=== PATIENT | female | born 1990 | race Caucasian/White ===

== ENCOUNTER 2016-06-15 20:35 | Emergency (ER) | payer OTHER ==
[~2016-06-15] VITALS: Ht 160 cm; Wt 60.0 kg
[~2016-06-15 20:35] MED LIST: NITR-87 PO; PREN-88 PO
[2016-06-15 21:25] VITALS: BP 127/79
[2016-06-15] MEDS ORDERED: KETOROLAC 60MG/2ML VIAL IM ONE (22:45)
[2016-06-15] MEDS ORDERED: ACETAMINOPHEN 325MG TABLET PO ONE (23:15)
== END 2016-06-15 23:50 | disposition home or self-care (01) ==
LOC: ER 20:36
DX: S62.633A Displaced fracture of distal phalanx of left middle finger, initial encounter for closed fracture (principal); J45.909 Unspecified asthma, uncomplicated; Z79.899 Other long term (current) drug therapy; Z88.8 Allergy status to other drugs, medicaments and biological substances; Y93.67 Activity, basketball; W21.05XA Struck by basketball, initial encounter; Y92.310 Basketball court as the place of occurrence of the external cause; Y99.8 Other external cause status
CPT/HCPCS: 29130; 73130; 99284

== ENCOUNTER 2016-08-28 11:05 | Emergency (ER) | payer OTHER ==
[~2016-08-28] VITALS: Ht 160 cm; Wt 59.0 kg
[2016-08-28] MEDS ORDERED: SODIUM CHLORIDE 0.9% 1,000 ML IV ONE (11:29)
[2016-08-28] MEDS ORDERED: FAMOTIDINE 20MG/2ML VIAL IV STA (11:29)
[2016-08-28] MEDS ORDERED: KETOROLAC 30MG/ML VIAL IV STA (11:29)
[2016-08-28] MEDS ORDERED: ONDANSETRON HCL 4MG/2ML VIAL IV STA (11:29)
[2016-08-28 12:06] LABS: BASOPHILS % 0.7 % (0.0-2.0); EOSINOPHILS % 0.1 % (0.0-5.0); HEMATOCRIT. 39.2 % (36.0-48.0); HEMOGLOBIN. 13.4 g/dL (12.0-16.0); LYMPHOCYTES % 19.1 % (20.0-50.0); MEAN CORPUSCULAR VOLUME 93.5 fL (81.0-99.0); MEAN PLATELET VOLUME 10.4 fl (7.4-10.4); MONOCYTES % 6.1 % (2.0-8.0); PLATELET 203 x1000/uL (130-400); RED CELL DISTRIBUTION WIDTH 13.1 % (11.6-14.6)
[2016-08-28 12:10] LABS: CHLORIDE 110 mEq/L (98-107)
[2016-08-28 12:13] LABS: INR 1.1; PROTHROMBIN TIME 11.4 sec
[2016-08-28 12:21] LABS: CARBON DIOXIDE 24 mEq/L (21-32)
[2016-08-28 13:23] VITALS: BP 119/78
== END 2016-08-28 13:30 | disposition home or self-care (01) ==
LOC: ER 11:50
DX: N92.0 Excessive and frequent menstruation with regular cycle (principal); R10.9 Unspecified abdominal pain; R11.2 Nausea with vomiting, unspecified; R19.7 Diarrhea, unspecified; R03.0 Elevated blood-pressure reading, without diagnosis of hypertension; Z97.5 Presence of (intrauterine) contraceptive device; Z88.8 Allergy status to other drugs, medicaments and biological substances; Z72.0 Tobacco use
CPT/HCPCS: 36415; 80053; 81025; 85025; 85610; 96361; 96374; 96375; 99284; J1885; J2405; J3490; J7030

== ENCOUNTER 2016-11-26 21:04 | Emergency (ER) | payer OTHER ==
[~2016-11-26] VITALS: Ht 160 cm; Wt 59.0 kg
[2016-11-26 21:22] VITALS: BP 119/82
== END 2016-11-26 22:10 | disposition left against medical advice (07) ==
LOC: ER 21:04
DX: Z53.21 Procedure and treatment not carried out due to patient leaving prior to being seen by health care provider (principal)

== ENCOUNTER 2017-01-06 18:05 | Emergency (ER) | payer SELFPAY ==
[~2017-01-06] VITALS: Ht 160 cm; Wt 59.0 kg
[2017-01-06] MEDS ORDERED: HYDROCODONE/ACETAMINOPHEN 5/325MG TABLET PO ONE (21:45)
[2017-01-07 00:24] VITALS: BP 128/91
[2017-01-07] MEDS ORDERED: HYDROCODONE/ACETAMINOPHEN 5/325MG TABLET PO ONE (00:30)
== END 2017-01-07 00:28 | disposition home or self-care (01) ==
LOC: ER 18:05
DX: S39.012A Strain of muscle, fascia and tendon of lower back, initial encounter (principal); J45.909 Unspecified asthma, uncomplicated; V89.0XXA Person injured in unspecified motor-vehicle accident, nontraffic, initial encounter; Y93.89 Activity, other specified; Y92.838 Other recreation area as the place of occurrence of the external cause
CPT/HCPCS: 72100; 99284

== ENCOUNTER 2017-02-12 11:01 | Emergency (ER) | payer MEDICAID, OTHER ==
[~2017-02-12] VITALS: Ht 160 cm; Wt 75.0 kg
[2017-02-12] MEDS ORDERED: SODIUM CHLORIDE 0.9% 1,000 ML IV ONE (14:45)
[2017-02-12] MEDS ORDERED: KETOROLAC 30MG/ML VIAL IV ONE (14:45)
[2017-02-12 15:43] LABS: BASOPHILS % 1.1 % (0.0-2.0); EOSINOPHILS % 0.4 % (0.0-5.0); HEMATOCRIT. 44.4 % (36.0-48.0); HEMOGLOBIN. 15.5 g/dL (12.0-16.0); LYMPHOCYTES % 30.5 % (20.0-50.0); MEAN CORPUSCULAR HEMOGLOBIN 32.9 pg (28.0-32.0); MEAN CORPUSCULAR VOLUME 94.2 fL (81.0-99.0); MEAN PLATELET VOLUME 10.8 fl (7.4-10.4); MONOCYTES % 7.3 % (2.0-8.0); NEUTROPHILS % 60.7 % (40.0-76.0); PLATELET 232 x1000/uL (130-400); RED BLOOD CELL COUNT 4.72 mill/uL (4.2-5.4); RED CELL DISTRIBUTION WIDTH 13.1 % (11.6-14.6)
[2017-02-12 16:01] VITALS: BP 136/101
[2017-02-12 16:38] LABS: CLARITY URINE CLOUDY (CLEAR); COLOR URINE YELLOW (YELLOW); KETONES URINE NEGATIVE (NEGATIVE); LEUKOCYTE ESTERASE URINE 1+ (NEGATIVE); NITRITE URINE NEGATIVE (NEGATIVE); OCCULT BLOOD URINE 1+ (NEGATIVE); PROTEIN URINE 1+ (NEGATIVE); SPECIFIC GRAVITY URINE 1.017 (1.005-1.030); UROBILINOGEN URINE 0.2 E.U./dL (0.2-1.0)
[2017-02-12] MEDS ORDERED: ACETAMINOPHEN 500MG TABLET PO ONE (17:30)
== END 2017-02-12 19:25 | disposition home or self-care (01) ==
LOC: ER 11:42
DX: N93.9 Abnormal uterine and vaginal bleeding, unspecified (principal); N39.0 Urinary tract infection, site not specified; J45.909 Unspecified asthma, uncomplicated; Z79.3 Long term (current) use of hormonal contraceptives
CPT/HCPCS: 36415; 81001; 81025; 85025; 96361; 96374; 99284; J1885; J7030; Z7610

== ENCOUNTER 2017-09-12 20:11 | Emergency (ER) | payer OTHER | END 2017-09-13 01:25 | disposition left against medical advice (07) | LOC: ER 20:11 | DX: Z53.21 Procedure and treatment not carried out due to patient leaving prior to being seen by health care provider (principal) ==

== ENCOUNTER 2017-09-17 20:26 | Emergency (ER) | payer OTHER ==
[~2017-09-17] VITALS: Ht 160 cm; Wt 61.0 kg
[2017-09-18] MEDS ORDERED: KETOROLAC 60MG/2ML VIAL IM ONE (03:45)
[2017-09-18] MEDS ORDERED: CYCLOBENZAPRINE 10MG TABLET PO ONE (03:45)
[2017-09-18 04:26] LABS: CLARITY URINE CLOUDY (CLEAR); COLOR URINE YELLOW (YELLOW); KETONES URINE NEGATIVE (NEGATIVE); LEUKOCYTE ESTERASE URINE 1+ (NEGATIVE); NITRITE URINE POSITIVE (NEGATIVE); OCCULT BLOOD URINE TRACE (NEGATIVE); PROTEIN URINE NEGATIVE (NEGATIVE); SPECIFIC GRAVITY URINE 1.021 (1.005-1.030); UROBILINOGEN URINE 0.2 E.U./dL (0.2-1.0)
[2017-09-18 05:00] VITALS: BP 116/88
== END 2017-09-18 06:00 | disposition home or self-care (01) ==
LOC: ER 20:26
DX: G89.29 Other chronic pain (principal); M54.9 Dorsalgia, unspecified; N39.0 Urinary tract infection, site not specified; J45.909 Unspecified asthma, uncomplicated; M41.9 Scoliosis, unspecified; Z79.899 Other long term (current) drug therapy
CPT/HCPCS: 81003; 81025; 87077; 87086; 87186; 96372; 99284; J1885

== ENCOUNTER 2017-11-22 22:06 | Emergency (ER) | payer OTHER ==
[~2017-11-22] VITALS: Ht 160 cm; Wt 59.0 kg
[2017-11-22] MEDS ORDERED: FAMOTIDINE 20MG TABLET PO ONE (23:45)
[2017-11-22] MEDS ORDERED: DIPHENHYDRAMINE 50MG CAPSULE PO ONE (23:45)
[2017-11-22] MEDS ORDERED: IBUPROFEN 600MG TABLET PO ONE (23:45)
[2017-11-23] MEDS ORDERED: PREDNISONE 20MG TABLET PO ONE (00:30)
[2017-11-23 01:22] VITALS: BP 128/88
== END 2017-11-23 02:40 | disposition home or self-care (01) ==
LOC: ER 11-23 02:19
DX: S91.051A Open bite, right ankle, initial encounter (principal); J45.909 Unspecified asthma, uncomplicated; W57.XXXA Bitten or stung by nonvenomous insect and other nonvenomous arthropods, initial encounter; Y93.89 Activity, other specified; Y92.89 Other specified places as the place of occurrence of the external cause; Y99.8 Other external cause status; Z98.890 Other specified postprocedural states
CPT/HCPCS: 99284; J7512; Q0163

== ENCOUNTER 2018-01-28 12:04 | Emergency (ER) | payer OTHER ==
[~2018-01-28] VITALS: Ht 160 cm; Wt 58.0 kg
[2018-01-28 16:02] VITALS: BP 121/75
== END 2018-01-28 16:02 | disposition home or self-care (01) ==
LOC: ER 12:04
DX: J06.9 Acute upper respiratory infection, unspecified (principal); J45.909 Unspecified asthma, uncomplicated
CPT/HCPCS: 99283

== ENCOUNTER 2018-04-07 17:23 | Emergency (ER) | payer OTHER ==
[~2018-04-07] VITALS: Ht 160 cm; Wt 56.3 kg
[2018-04-07 17:32] VITALS: BP 127/88
== END 2018-04-07 23:30 | disposition left against medical advice (07) ==
LOC: ER 19:30
DX: M79.644 Pain in right finger(s) (principal); Z53.21 Procedure and treatment not carried out due to patient leaving prior to being seen by health care provider

== ENCOUNTER 2018-05-31 03:41 | Emergency (ER) | payer OTHER ==
[~2018-05-31] VITALS: Ht 160 cm; Wt 61.0 kg
[2018-05-31 05:14] VITALS: BP 130/62
== END 2018-05-31 05:15 | disposition home or self-care (01) ==
LOC: ER 03:41
DX: M25.512 Pain in left shoulder (principal)
CPT/HCPCS: 73030; 99283

== ENCOUNTER 2018-07-24 00:30 | Emergency (ER) | payer OTHER ==
[~2018-07-24] VITALS: Ht 160 cm; Wt 62.4 kg
[2018-07-24] MEDS ORDERED: ONDANSETRON HCL 4MG/2ML INJ IV STA (01:34)
[2018-07-24] MEDS ORDERED: KETOROLAC 30MG/ML VIAL IV STA (01:34)
[2018-07-24] MEDS ORDERED: SODIUM CHLORIDE 0.9% 1,000 ML IV ONE (01:34)
[2018-07-24 01:55] LABS: BASOPHILS % 1.1 % (0.0-2.0); EOSINOPHILS % 1.6 % (0.0-5.0); HEMATOCRIT. 39.6 % (36.0-48.0); HEMOGLOBIN. 13.6 g/dL (12.0-16.0); LYMPHOCYTES % 26.9 % (20.0-50.0); MEAN CORPUSCULAR HEMOGLOBIN 32.6 pg (28.0-32.0); MEAN CORPUSCULAR VOLUME 94.8 fL (81.0-99.0); MEAN PLATELET VOLUME 9.8 fl (7.4-10.4); MONOCYTES % 8.1 % (2.0-8.0); NEUTROPHILS % 62.3 % (40.0-76.0); PLATELET 261 x1000/uL (130-400); RED BLOOD CELL COUNT 4.17 mill/uL (4.2-5.4); RED CELL DISTRIBUTION WIDTH 13.2 % (11.6-14.6)
[2018-07-24 01:57] LABS: CHLORIDE 106 mEq/L (98-107)
[2018-07-24 02:07] LABS: CLARITY URINE TURBID (CLEAR); COLOR URINE YELLOW (YELLOW); KETONES URINE NEGATIVE (NEGATIVE); LEUKOCYTE ESTERASE URINE 1+ (NEGATIVE); NITRITE URINE POSITIVE (NEGATIVE); OCCULT BLOOD URINE NEGATIVE (NEGATIVE); PROTEIN URINE NEGATIVE (NEGATIVE); SPECIFIC GRAVITY URINE 1.021 (1.005-1.030)
[2018-07-24] MEDS ORDERED: HYDROCODONE/ACETAMINOPHEN 5/325MG TABLET PO ONE (04:00)
[2018-07-24 04:28] VITALS: BP 109/71
== END 2018-07-24 04:50 | disposition home or self-care (01) ==
LOC: ER 00:30
DX: N39.0 Urinary tract infection, site not specified (principal); J45.909 Unspecified asthma, uncomplicated
CPT/HCPCS: 36415; 76830; 76856; 80053; 81003; 81025; 85025; 96374; 96375; 99284; J1885; J2405; J7030; Z7610

== ENCOUNTER 2018-09-01 20:13 | Emergency (ER) | payer BC, OTHER ==
[~2018-09-01] VITALS: Ht 160 cm; Wt 66.0 kg
[2018-09-01] MEDS ORDERED: ONDANSETRON 4MG ODT PO ONE (21:15)
[2018-09-01] MEDS ORDERED: MORPHINE SULFATE 4 MG/ML CPJ (NOT FOR IM USE) IV ONE (21:30)
[2018-09-01] MEDS ORDERED: ONDANSETRON HCL 4MG/2ML INJ IV ONE (21:30)
[2018-09-01 21:55] LABS: BASOPHILS % 0.9 % (0.0-2.0); EOSINOPHILS % 0.2 % (0.0-5.0); HEMOGLOBIN. 14.1 g/dL (12.0-16.0); LYMPHOCYTES % 22.3 % (20.0-50.0); MEAN CORPUSCULAR HEMOGLOBIN 32.6 pg (28.0-32.0); MEAN CORPUSCULAR VOLUME 94.6 fL (81.0-99.0); MONOCYTES % 8.2 % (2.0-8.0); NEUTROPHILS % 68.4 % (40.0-76.0); PLATELET 224 x1000/uL (130-400); RED BLOOD CELL COUNT 4.33 mill/uL (4.2-5.4); RED CELL DISTRIBUTION WIDTH 12.9 % (11.6-14.6)
[2018-09-01 22:01] LABS: CHLORIDE 102 mEq/L (98-107)
[2018-09-01 22:38] LABS: B-HCG QUANTITATIVE 146831 mIU/mL (<3)
[2018-09-02] MEDS ORDERED: SODIUM CHLORIDE 0.9% 500 ML IV ONE (00:15)
[2018-09-02 00:51] VITALS: BP 110/61
== END 2018-09-02 00:54 | disposition home or self-care (01) ==
LOC: ER 20:13 → CANBEDREQ 23:15 → ER 09-02 00:54
DX: O20.0 Threatened abortion (principal); O26.891 Other specified pregnancy related conditions, first trimester; J45.909 Unspecified asthma, uncomplicated; Z3A.01 Less than 8 weeks gestation of pregnancy
CPT/HCPCS: 36415; 76801; 76817; 80053; 81025; 84702; 85025; 86850; 86870; 86900; 86901; 96374; 99284; J2270; J7040; Q0162

== ENCOUNTER 2020-11-05 17:55 | Observation (INO) | payer BC, OTHER ==
[~2020-11-05] VITALS: Ht 160 cm; Wt 67.6 kg
[2020-11-05] MEDS ORDERED: ACETAMINOPHEN 500MG TABLET PO ONE (19:00)
[2020-11-05] MEDS ORDERED: DEXT 5%/LACTATED RINGERS 1,000 ML IV SCH (19:00)
[2020-11-05 19:07] LABS: CLARITY URINE CLEAR (CLEAR); COLOR URINE YELLOW (YELLOW); KETONES URINE NEGATIVE (NEGATIVE); LEUKOCYTE ESTERASE URINE NEGATIVE (NEGATIVE); NITRITE URINE NEGATIVE (NEGATIVE); OCCULT BLOOD URINE NEGATIVE (NEGATIVE); PROTEIN URINE NEGATIVE (NEGATIVE); SPECIFIC GRAVITY URINE 1.014 (1.005-1.030); UROBILINOGEN URINE 0.2 E.U./dL (0.2-1.0)
== END 2020-11-05 20:00 | disposition home or self-care (01) ==
LOC: 8 EST LDRP 17:55
PROVIDERS: ADMIT Obstetrics & Gynecology; ATTEND Obstetrics & Gynecology
DX: O99.891 Other specified diseases and conditions complicating pregnancy (principal); M54.9 Dorsalgia, unspecified; O26.893 Other specified pregnancy related conditions, third trimester; R10.9 Unspecified abdominal pain; Z3A.37 37 weeks gestation of pregnancy
CPT/HCPCS: 59025; 81003; G0378; 99281; G0379

== ENCOUNTER 2020-11-08 01:41 | Inpatient (IN) | payer BC, MEDICAID, OTHER ==
[~2020-11-08] VITALS: Ht 160 cm; Wt 67.6 kg
[2020-11-08] MEDS: LACTATED RINGERS 1,000 ML IV SCH ×2 (02:30→05:34)
[2020-11-08] MEDS ORDERED: PREN-118 PO (02:43)
[2020-11-08] MEDS ORDERED: LIDOCAINE HCL 1% 20ML VIAL (Pyxis) INJ INFIL SCH (02:45)
[2020-11-08] MEDS ORDERED: DEXT 5%/LR + PITOCIN 20UNITS/L 1,000 ML IV SCH ×2 (02:45→16:00)
[2020-11-08] MEDS ORDERED: BUTORPHANOL TARTRATE 2 MG/ML VIAL IV PRN (02:45)
[2020-11-08] MEDS ORDERED: NALOXONE HCL 0.4 MG/ML 1ML VIAL IM PRN (02:45)
[2020-11-08] MEDS ORDERED: METHYLERGONOVINE MALEATE 0.2 MG/ML IM PRN (02:45)
[2020-11-08] MEDS ORDERED: CARBOPROST TROMETHAMINE 250 MCG/ML AMPUL IM PRN (02:45)
[2020-11-08] MEDS ORDERED: PENICILLIN G POTASSIUM 5 MMU in DEXT 5% WATER 100 ML IV SCH (03:00)
[2020-11-08 03:13] LABS: BASOPHILS % 0.5 % (0.0-2.0); EOSINOPHILS % 0.7 % (0.0-5.0); HEMATOCRIT. 30.6 % (36.0-48.0); HEMOGLOBIN. 10.6 g/dL (12.0-16.0); LYMPHOCYTES % 33.1 % (20.0-50.0); MEAN CORPUSCULAR HEMOGLOBIN 31.5 pg (28.0-32.0); MEAN CORPUSCULAR VOLUME 91.1 fL (81.0-99.0); MEAN PLATELET VOLUME 10.4 fl (7.4-10.4); MONOCYTES % 9.1 % (2.0-8.0); NEUTROPHILS % 56.6 % (40.0-76.0); PLATELET 201 x1000/uL (130-400); RED BLOOD CELL COUNT 3.36 mill/uL (4.2-5.4); RED CELL DISTRIBUTION WIDTH 13.7 % (11.6-14.6)
[2020-11-08 03:16] LABS: CLARITY URINE CLEAR (CLEAR); COLOR URINE YELLOW (YELLOW); KETONES URINE NEGATIVE (NEGATIVE); LEUKOCYTE ESTERASE URINE NEGATIVE (NEGATIVE); NITRITE URINE NEGATIVE (NEGATIVE); OCCULT BLOOD URINE NEGATIVE (NEGATIVE); PROTEIN URINE NEGATIVE (NEGATIVE); UROBILINOGEN URINE 0.2 E.U./dL (0.2-1.0)
[2020-11-08 03:23] LABS: INR 0.9; PARTIAL THROMBOPLASTIN TIME 25.4 sec (23.4-31.0)
[2020-11-08 03:25] LABS: *AMPHETAMINES SCREEN URINE NEGATIVE (NEGATIVE); *BARBITURATES SCREEN URINE NEGATIVE (NEGATIVE); *BENZODIAZEPINES SCREEN URINE NEGATIVE (NEGATIVE); *COCAINE SCREEN URINE NEGATIVE (NEGATIVE); CANNABINOID URINE SCREEN NEGATIVE (NEGATIVE); METHADONE URINE SCREEN NEGATIVE (NEGATIVE); OPIATES URINE SCREEN NEGATIVE (NEGATIVE)
[2020-11-08 03:26] LABS: PHENCYCLIDINE URINE SCREEN NEGATIVE (NEGATIVE)
[2020-11-08] MEDS ORDERED: ROPIVACAINE HCL/PF EPIDURAL 200 ML EPI ONE (04:50)
[2020-11-08] MEDS ORDERED: BUPIVACAINE HCL/PF 0.25% (2.5MG/ML) 10ML ONE (04:50)
[2020-11-08] MEDS ORDERED: FENTANYL CITRATE/PF 50MCG/ML 2ML VIAL ONE (04:50)
[2020-11-08] MEDS ORDERED: ONDANSETRON HCL 4MG/2ML INJ IV SCH (06:00)
[2020-11-08] MEDS ORDERED: PENICILLIN G POTASSIUM 2.5 MMU in DEXTROSE 5% WATER 50 ML IV SCH (07:00)
[2020-11-08] MEDS ORDERED: PNEUMOCOCCAL 23-VAL P-SAC VAC 0.5 ML IM ONE (12:00)
[2020-11-08 13:54] LABS: HEPATITIS B SURFACE ANTIGEN NEGATIVE
[2020-11-08] MEDS ORDERED: BENZOCAINE/LANOLIN/ALOE VERA SPRAY TOP PRN (16:00)
[2020-11-08] MEDS ORDERED: BISACODYL 10MG SUPP PR PRN (16:00)
[2020-11-08] MEDS ORDERED: MINERAL OIL 30ML BOTTLE TOP PRN (16:00)
[2020-11-08] MEDS ORDERED: GLYCERIN/WITCH HAZEL LEAF MEDICATED PAD TOP PRN (16:00)
[2020-11-08] MEDS ORDERED: IBUPROFEN 400MG TABLET PO PRN (16:00)
[2020-11-08] MEDS ORDERED: HEMORRHOIDAL SUPP PR PRN (16:00)
[2020-11-08 17:45] VITALS: BP 96/53
[2020-11-08] MEDS: IBUPROFEN 800MG TABLET PO PRN (17:49)
[2020-11-08 18:32] VITALS: BP 100/55
[2020-11-08] MEDS ORDERED: INFLUENZA VACCINE 05/PF 0.5 ML SYRINGE IM ONE (18:45)
[2020-11-08] MEDS ORDERED: TETANUS, DIPHTHERIA, PERTUSSIS VAC/PF 0.5ML (>7YR OLD) IM ONE (18:45)
[2020-11-08 20:00] VITALS: BP 111/66
[2020-11-08] MEDS: MAGNESIUM/ALUMINUM HYDROXIDE/SIMETHICONE 30ML UDC PO SCH (20:35)
[2020-11-08] MEDS: SIMETHICONE 80MG TABLET CHEW PO SCH (20:35)
[2020-11-08] MEDS: ACETAMINOPHEN WITH CODEINE 300/30MG TABLET PO PRN (20:36)
[2020-11-08] MEDS ORDERED: DOCUSATE SODIUM 100MG CAPSULE PO SCH (21:00)
[2020-11-09 04:00] VITALS: BP 110/66
[2020-11-09] MEDS: IBUPROFEN 800MG TABLET PO PRN (05:35)
[2020-11-09 08:00] VITALS: BP 115/58
[2020-11-09] MEDS ORDERED: IBUP-2030 PO (08:40)
[2020-11-09] MEDS ORDERED: FERR-63 PO (08:40)
[2020-11-09 08:45] LABS: BASOPHILS % 0.5 % (0.0-2.0); EOSINOPHILS % 0.8 % (0.0-5.0); HEMATOCRIT. 27.7 % (36.0-48.0); HEMOGLOBIN. 9.5 g/dL (12.0-16.0); LYMPHOCYTES % 22.5 % (20.0-50.0); MEAN CORPUSCULAR HEMOGLOBIN 31.6 pg (28.0-32.0); MEAN CORPUSCULAR VOLUME 92.1 fL (81.0-99.0); MEAN PLATELET VOLUME 10.3 fl (7.4-10.4); MONOCYTES % 8.5 % (2.0-8.0); NEUTROPHILS % 67.7 % (40.0-76.0); PLATELET 178 x1000/uL (130-400); RED BLOOD CELL COUNT 3.01 mill/uL (4.2-5.4); RED CELL DISTRIBUTION WIDTH 14.1 % (11.6-14.6)
[2020-11-09] MEDS ORDERED: RHO(D) IMMUNE GLOBULIN 300 MCG/SYR IM SCH (08:45)
[2020-11-09] MEDS ORDERED: PRENATAL VIT/FE FUMARATE/FA TABLET PO SCH (09:00)
[2020-11-09] MEDS: MAGNESIUM/ALUMINUM HYDROXIDE/SIMETHICONE 30ML UDC PO SCH ×2 (09:55→12:30)
[2020-11-09] MEDS: SIMETHICONE 80MG TABLET CHEW PO SCH ×2 (09:55→13:00)
[2020-11-09] MEDS: FERROUS SULFATE 325MG TABLET PO SCH ×2 (09:56→12:30)
[2020-11-09 09:57] VITALS: BP 110/66
[2020-11-09] MEDS: ACETAMINOPHEN WITH CODEINE 300/30MG TABLET PO PRN (09:57)
[2020-11-09] MEDS ORDERED: MEDROXYPROGESTERONE ACETATE 150MG/ML VIAL IM SCH (10:00)
== END 2020-11-09 16:00 | disposition home or self-care (01) | DRG 560 ==
LOC: 8 EST LDRP 01:41 → OBSVTOIN 01:41 → 8 EST LDRP 02:12 → 8EST 17:40
PROVIDERS: ADMIT Obstetrics & Gynecology; ATTEND Obstetrics & Gynecology
PROC: 10E0XZZ Delivery of Products of Conception, External Approach (ICD-10-PCS; principal; 2020-11-08)
PROC: 3E0R3BZ Introduction of Anesthetic Agent into Spinal Canal, Percutaneous Approach (ICD-10-PCS; 2020-11-08)
PROC: 00HU33Z Insertion of Infusion Device into Spinal Canal, Percutaneous Approach (ICD-10-PCS; 2020-11-08)
DX: O99.52 Diseases of the respiratory system complicating childbirth (principal); Z37.0 Single live birth; J45.909 Unspecified asthma, uncomplicated; O90.81 Anemia of the puerperium; Z3A.38 38 weeks gestation of pregnancy; Z88.8 Allergy status to other drugs, medicaments and biological substances; Z20.822 Contact with and (suspected) exposure to COVID-19
CPT/HCPCS: 36415; 76805; 76818; 80305; 81003; 85025; 86592; 86703; 86762; 86850; 86870; 86900; 87340; 87426; 90686; 90715; 99281; J0595; J1050; J2405; J2540; J2590; J2795; J3010; J3490; J7060; J7120